=== PATIENT | male | born 1975 ===

== ENCOUNTER 2019-03-11 15:14 | Inpatient (IN) ==
[2019-03-11] MEDS ORDERED: PANTOPRAZOLE 40 MG VIAL IV STA (16:34)
[2019-03-11] MEDS ORDERED: SODIUM CHLORIDE 0.9% 1,000 ML IV STA (16:34)
[2019-03-11 17:09] LABS: Basophils % 0.3 % (0.0-0.8); Hematocrit 27.9 VOL% (42.0-52.0); Hemoglobin 8.8 GM/DL (14.0-18.0); Immature Granulocytes % 1.2 %; Immature Granulocytes Absolute 0.15 #; Lymphocytes # 1.7 10*3/uL (1.4-4.0); Lymphocytes % 13.9 % (21.2-54.2); Mean Corpuscular HGB Conc 31.5 GM/DL (32-36); Mean Corpuscular Hemoglobin 28 PG (27-34); Mean Corpuscular Volume 87.7 FL (87-102); Mean Platelet Volume 10.1 FL (9.6-12.0); Monocytes # 0.8 10*3/uL (0.11-0.8); Monocytes % 6.4 % (1.7-12.7); NRBC # 0.07 10*3/uL; Neutrophils # 9.7 10*3/uL (1.4-7.4); Neutrophils % 78.2 % (38.7-73.9); Platelet Count 220 T/CUMM (130-400); Red Blood Count 3.18 MC/CUMM (3.8-5.5); Red Cell Distribution Width 14.6 % (9.3-17.3); White Blood Count 12.4 T/CUMM (4-12)
[2019-03-11 17:21] LABS: INR 1.1; PT Patient Result 11.4 SECS; Partial Thromboplastin Time < 21.0 SECS (0-40)
[2019-03-11 17:38] LABS: Alanine Aminotransferase 13 U/L (16-61); Albumin 3.4 G/DL (3.4-5.0); Alkaline Phosphatase 54 U/L (45-117); Aspartate Amino Transferase 9 U/L (0-37); Bilirubin,Total < 0.39 MG/DL (0.2-1.0); Blood Urea Nitrogen 23 MG/DL (7-18); Calcium 7.5 MG/DL (8.5-10.1); Glucose 142 MG/DL (74-106); Osmolality,Calculated 286.3 MOS/KG (273-304); Potassium 4.1 MMOL/L (3.5-5.1); Sodium 141 MMOL/L (136-145); Total Protein 6.6 G/DL (6.4-8.3)
[2019-03-11] MEDS ORDERED: traZODone 50 MG TABLET PO PRN (19:11)
[2019-03-11] MEDS ORDERED: ONDANSETRON 4 MG/2 ML VIAL IV PRN (19:11)
[2019-03-11] MEDS ORDERED: SODIUM CHLORIDE 0.9% 1,000 ML IV PRN (19:15)
[2019-03-11 21:03] LABS: Hematocrit 26.5 VOL% (42.0-52.0); Hemoglobin 8.3 GM/DL (14.0-18.0)
[2019-03-11] MEDS: PANTOPRAZOLE 40 MG VIAL IV SCH (23:21)
[2019-03-11] MEDS: DEXTROSE 5% NACL 0.9% 1,000 ML IV SCH (23:21)
[2019-03-12 01:06] LABS: Hemoglobin 7.5 GM/DL (14.0-18.0)
[2019-03-12 01:25] LABS: Calcium 7.6 MG/DL (8.5-10.1); Osmolality,Calculated 284.4 MOS/KG (273-304); Potassium 3.8 MMOL/L (3.5-5.1)
[2019-03-12] MEDS: DEXTROSE 5% NACL 0.9% 1,000 ML IV SCH ×3 (06:02→22:50)
[2019-03-12 07:21] LABS: Hematocrit 28.1 VOL% (42.0-52.0); Hemoglobin 8.9 GM/DL (14.0-18.0)
[2019-03-12] MEDS ORDERED: SODIUM CHLORIDE 0.9% 1,000 ML IV PRN (07:22)
[2019-03-12] MEDS ORDERED: ACETAMINOPHEN 325 MG TABLET PO SCH (07:30)
[2019-03-12] MEDS ORDERED: diphenhydrAMINE 50 MG/1 ML VIAL IV SCH (07:30)
[2019-03-12] MEDS: PANTOPRAZOLE 40 MG VIAL IV SCH ×2 (09:20→21:43)
[2019-03-12] MEDS: ACETAMINOPHEN 325 MG TABLET PO PRN ×3 (12:41→21:44)
[2019-03-12 13:36] LABS: Hematocrit 24.8 VOL% (42.0-52.0)
[2019-03-12 15:07] LABS: Hematocrit 25.8 VOL% (42.0-52.0); Hemoglobin 8.2 GM/DL (14.0-18.0)
[2019-03-13 05:33] LABS: Risk Ratio 3.65; VLDL CHOLESTEROL 16.8 MG/DL
[2019-03-13 05:43] LABS: Hematocrit 30.3 VOL% (42.0-52.0); Hemoglobin 9.8 GM/DL (14.0-18.0)
[2019-03-13] MEDS: DEXTROSE 5% NACL 0.9% 1,000 ML IV SCH ×3 (07:52→22:11)
[2019-03-13] MEDS: PANTOPRAZOLE 40 MG VIAL IV SCH ×2 (08:52→21:13)
[2019-03-13] MEDS ORDERED: LACTATED RINGERS 500 ML IV ONE (09:00)
[2019-03-13] MEDS: ACETAMINOPHEN 325 MG TABLET PO PRN (11:42)
[2019-03-13] MEDS ORDERED: BISACODYL 5 MG TABLET PO ONE (12:00)
[2019-03-13] MEDS: BUTALBITAL/ACETAMIN/CAFFEINE 50-325-40 MG TABLET PO PRN ×2 (12:22→22:42)
[2019-03-13] MEDS ORDERED: LIDOCAINE 2% 5 ML VIAL ONE (12:30)
[2019-03-13] MEDS ORDERED: PROPOFOL 200 MG/20 ML VIAL IV ONE (12:30)
[2019-03-13 13:04] LABS: Hematocrit 26.6 VOL% (42.0-52.0); Hemoglobin 8.6 GM/DL (14.0-18.0)
[2019-03-13] MEDS ORDERED: POLYETHYLENE GLYCOL POWDER 255 GM BOTTLE PO ONE (18:00)
[2019-03-13] MEDS ORDERED: SODIUM CHLORIDE 0.9% 1,000 ML IV PRN (18:04)
[2019-03-13 20:03] LABS: Hematocrit 31.3 VOL% (42.0-52.0); Hemoglobin 9.8 GM/DL (14.0-18.0)
[2019-03-14] MEDS: DEXTROSE 5% NACL 0.9% 1,000 ML IV SCH ×3 (05:16→21:00)
[2019-03-14 05:29] LABS: Basophils % 0.1 % (0.0-0.8); Eosinophils # 0.1 10*3/uL (0.0-0.87); Eosinophils % 1.6 % (0.00-10.9); Hematocrit 31.3 VOL% (42.0-52.0); Hemoglobin 9.7 GM/DL (14.0-18.0); Immature Granulocytes % 0.7 %; Immature Granulocytes Absolute 0.05 #; Lymphocytes % 27.9 % (21.2-54.2); Mean Corpuscular Hemoglobin 28 PG (27-34); Mean Corpuscular Volume 88.9 FL (87-102); Mean Platelet Volume 9.5 FL (9.6-12.0); Monocytes # 0.7 10*3/uL (0.11-0.8); NRBC # 0.03 10*3/uL; Neutrophils # 4.4 10*3/uL (1.4-7.4); Neutrophils % 59.7 % (38.7-73.9); Platelet Count 196 T/CUMM (130-400); Red Blood Count 3.52 MC/CUMM (3.8-5.5); Red Cell Distribution Width 15.8 % (9.3-17.3); White Blood Count 7.3 T/CUMM (4-12)
[2019-03-14 05:58] LABS: Albumin 3.1 G/DL (3.4-5.0); Bilirubin,Total 0.4 MG/DL (0.2-1.0); Calcium 7.5 MG/DL (8.5-10.1); Osmolality,Calculated 284.8 MOS/KG (273-304); Potassium 3.2 MMOL/L (3.5-5.1); Total Protein 5.7 G/DL (6.4-8.3)
[2019-03-14] MEDS: BUTALBITAL/ACETAMIN/CAFFEINE 50-325-40 MG TABLET PO PRN ×2 (08:09→17:17)
[2019-03-14] MEDS: PANTOPRAZOLE 40 MG VIAL IV SCH ×2 (08:09→21:00)
[2019-03-14] MEDS ORDERED: PROPOFOL 200 MG/20 ML VIAL IV ONE (10:00)
[2019-03-14] MEDS ORDERED: LIDOCAINE 2% 5 ML VIAL ONE (10:00)
[2019-03-14] MEDS ORDERED: MAGNESIUM CITRATE 300 ML BOTTLE PO ONE ×2 (10:27→17:00)
[2019-03-14] MEDS ORDERED: POTASSIUM CHLORIDE 20 MEQ TABLET PO ONE (16:25)
[2019-03-15] MEDS: DEXTROSE 5% NACL 0.9% 1,000 ML IV SCH ×3 (04:09→11:16)
[2019-03-15] MEDS: PANTOPRAZOLE 40 MG VIAL IV SCH (08:28)
[2019-03-15 12:25] VITALS: BP 139/89
== END 2019-03-15 15:42 | disposition home or self-care (01) | DRG 378 ==
LOC: N.ED 15:14 → N.EDINP 19:10 → N.5E 23:42
PROVIDERS: ADMIT Hospitalist; ATTEND Hospitalist